=== PATIENT | female | born 1955 | race Caucasian/White ===

== ENCOUNTER 2017-07-18 13:28 | Observation (INO) | payer SELFPAY ==
[~2017-07-18] VITALS: Ht 165.1 cm; Wt 105.1 kg
[~2017-07-18 13:28] MED LIST: INDOCIN25 MG PO; ULTRACET1 TABLET PO; VALIUM5 MG PO
[2017-07-18 14:35] LABS: MCH 30.5 PG (29.0-34.0); MCHC 33.8 G/DL (30.0-36.0); MCV 90.5 FL (83-99); MEAN PLAT.VOLUME 10.2 uM^3 (9.5-12.4); PLATELET COUNT 320 K/uL (156-360); RBC DIS.WIDTH-CV 12.2 % (11.8-14.6); RBC DIS.WIDTH-SD 40.6 % (39-53); RED BLOOD COUNT 4.42 M/uL (3.80-5.20); WHITE BLOOD COUNT 15.7 K/uL (4.1-10.2)
[2017-07-18 14:45] LABS: CHLORIDE 105 mEq/L (99-109); POTASSIUM 3.7 mEq/L (3.7-5.4); SODIUM 139 mEq/L (136-147)
[2017-07-18 14:47] LABS: GLUCOSE 98 mg/dL (70-99)
[2017-07-18 14:48] LABS: ANION GAP 10 MEQ/L (2-14)
[2017-07-18 14:51] LABS: GFR ESTIMATE (CALCULATED) > 59 mL/min/; UREA NITROGEN (BUN) 12 mg/dL (9-23)
[2017-07-18 14:57] LABS: TROP-I INTERPRETATION NEGATIVE; TROPONIN-I 0.01 ng/mL (0.0-0.30)
[2017-07-18] MEDS ORDERED: ADVIL200 MG PO (16:54)
[2017-07-18 19:42] VITALS: BP 125/85
== END 2017-07-18 19:37 | disposition left against medical advice (07) ==
LOC: EME 13:28 → EDOF 17:40 → ENRESERV 17:41 → EDOF 19:37
DX: R07.9 Chest pain, unspecified (principal); F17.200 Nicotine dependence, unspecified, uncomplicated; Z82.49 Family history of ischemic heart disease and other diseases of the circulatory system; E66.01 Morbid (severe) obesity due to excess calories; Z83.3 Family history of diabetes mellitus
CPT/HCPCS: 71020; 80048; 84484; 85027; 93005; 99281; 99285; G0378; J1650; J7030